=== PATIENT | female | born 1965 | race Caucasian/White ===

== ENCOUNTER 2017-10-05 08:38 | Emergency (ER) | payer OTHER ==
[2017-10-05 08:55] VITALS: RESP 18; TEMP 98
[2017-10-05] MEDS ORDERED: ASPIRIN 81 MG CHEWABLE TAB PO ONE (09:03)
[2017-10-05 09:30] LABS: % IMMATURE GRANULYOCYTES 0.3 % (0.0-1.1); ABSOLUTE IMMATURE GRANULOCYTES 0.02 10^3/uL (0.00-0.10); ADD DIFF? NO; ADD MORPH? NO; ADD SCAN? NO; ATYPICAL LYMPHOCYTE FLAG 0 (0-99); FRAGMENT RBC FLAG 0 (0-99); HEMATOCRIT 43.1 % (38.0-47.0); LEFT SHIFT FLG 0 (0-99); LIPEMIA HEMOLYSIS FLAG 90 (0-99); MEAN CELL HEMOGLOBIN CONCENTR. 34.8 g/dL (32.4-36.7); MEAN CELL VOLUME 91.9 fL (81.5-99.8); MEAN PLATELET VOLUME 10.3 fL (8.7-11.7); PLATELET CLUMPS FLAG 0 (0-99); PLATELET COUNT 240 10^3/uL (150-400); RED BLOOD CELL COUNT 4.69 10^6/uL (4.18-5.33); RED CELL DISTRIBUTION WIDTH 12.5 % (11.5-15.2)
--- NOTE | 2017-10-05 09:39 | EDPHY ---
H & P Time Seen by Provider: 10/05/17 08:54 HPI/ROS: This patient presents with atraumatic left leg pain and swelling with history of prior DVT. She rashes but private vehicle for further evaluation of her symptoms. She reports onset of left leg pain over the past week with onset of swelling to the affected leg over the past 2-3 days. The pain worsens with movement and walking. She reports the nature the pain is achy at baseline 5/10 intensity becomes more sharp with movement or walking. Symptoms feel similar to her prior DVT. She notes no other associated symptoms and side no recent trauma to the affected leg. ROS: No fevers or chills. No other constitutional symptoms HEENT: No complaints pulmonary: No shortness of breath or pleuritic plain. No coughing Cardiovascular: No lightheadedness or heart palpitations GI: No nausea or vomiting Integumentary: No skin rash 7 point ROS is otherwise negative. 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 She was also on a Nuva- ring at that time. She was treated for 6 months with anticoagulants. No recent surgical procedures Social History: No drug use. No recent prolonged travel. Smoking Status: Never smoked Physical Exam: Physical Exam Vital signs are normal. General: No acute distress Eyes: Pupils equal and react to light. Extraocular motions are intact. Lungs: Clear to auscultation bilaterally. No respiratory distress. Cardiac: Regular rate and rhythm with no murmur gallop or rub Brisk capillary refill is intact throughout. Pulses are 2+ popliteal, dorsalis pedis and posterior tibialis and symmetric in the affected extremity. Skin: No rash or pallor. Extremities: Atraumatic and normal except for left leg Left leg exam is notable for calf swelling-circumference 4 cm below the tibial tuberosity 42.5 cm on the left leg compared to 40 cm on the right leg. She has associated posterior tenderness. Homans is negative. She has mild popliteal tenderness on the left leg with no appreciable swelling to the popliteal fossa. She has no knee swelling or tenderness on the affected side. No ankle or foot swelling on the left side. Neuro: Alert and oriented x3 with no sensorimotor deficits. Initial differential diagnosis: DVT, post DVT edema, calf strain, dependent edema Constitutional: Initial Vital Signs Temperature (C) 36.6 C 10/05/17 08:52 Heart Rate 88 10/05/17 08:52 Respiratory Rate 18 10/05/17 08:52 Blood Pressure 166/95 H 10/05/17 08:52 O2 Sat (%) 95 10/05/17 08:52 O2 Delivery Mode Room Air Allergies/Adverse Reactions: No Known Allergies Allergy (Unverified 11/25/10 11:37) Home Medications: Medication Instructions Recorded Singulair 11/25/10 Losartan Potassium [Cozaar] 25 mg PO 03/15/13 Nebivolol HCl [Bystolic 10 mg] 10 mg PO 03/15/13 Atorvastatin Calcium 10/05/17 MDM/Departure - [facility] Imaging Results: Imaging Impressions Extremity Venous Study 10/05/17 09:03 Impression: There is no sonographic evidence of deep or superficial vein thrombosis in the left lower extremity. Findings were discussed with MANUEL SMITH MD at 9:59, on 10/05/2017. Imaging: Discussed imaging studies w/ call center director Radiologist Medications Given: Discontinued Medications Aspirin (Aspirin) 324 mg PO EDNOW ONE Stop: 10/05/17 09:04 Last Admin: 10/05/17 09:13 Dose: 324 mg ED Course/Re-evaluation: Aspirin p.o. & phlebotomy I spoke with Dr. Jin Carpenter regarding the negative Doppler ultrasound for DVT. I suspect the patient has dependent edema attributable in part to less venous return from her prior DVT. I counseled regarding this Will suggest support hose, elevating the leg, Tylenol ibuprofen for analgesia and follow up with primary care physician. - Depart Disposition: Home, Routine, Self-Care Clinical Impression: Dependent edema Condition: Good Instructions: Leg Edema (ED) Additional Instructions: Diagnosis: Dependent Leg edema Plan: Elevate the leg whenever possible Purchase support hose and wear them when upright and about. Tylenol ibuprofen for discomfort Follow up with primary care physician for any ongoing symptoms Return for any significant worsening despite the treatment plan. Referrals: Nikia Eldridge MD [Primary Care Provider] - As per Instructions
[2017-10-05 09:47] LABS: ANION GAP 16 mEq/L (8-16); CALCIUM 9.5 mg/dL (8.5-10.4); CARBON DIOXIDE 24 mEq/l (22-31); CHLORIDE 103 mEq/L (97-110); CREATININE 0.6 mg/dL (0.6-1.0); GLOMERULAR FILTRATION RATE > 60; GLUCOSE 107 mg/dL (70-100); POTASSIUM 4.2 mEq/L (3.5-5.2); SODIUM 143 mEq/L (134-144)
[2017-10-05 10:03] VITALS: PULSE 78; O2SAT 97
[2017-10-05 10:12] VITALS: BP 137/85
== END 2017-10-05 10:11 | disposition home or self-care (01) ==
LOC: CED 08:38
DX: R60.0 Localized edema (principal)
CPT/HCPCS: 80048-PO; 85025-PO; 93971-PO